=== PATIENT | female | born 1995 | race Caucasian/White ===

== ENCOUNTER 2023-04-13 20:15 | Emergency (ER) | payer BC, SELFPAY ==
[2023-04-13 20:27] VITALS: BMI 23.9
[2023-04-13 20:29] VITALS: BP 122/67; PULSE 65; RESP 16; TEMP 37.2; O2SAT 99
--- NOTE | 2023-04-13 21:45 | ED_ITS ---
HPI - Animal Bite General: Chief Complaint: Animal Bite Stated Complaint: bit by a cat bilateral hands Time Seen by Provider: 04/13/23 20:29 History of Present Illness: 27-year-old female was trying to catch a wild kitten while visiting in [place]. She had caught the Lid become aggressive and scratched and bit at her hands. Incident occurred yesterday. Patient came to be evaluated for injuries and discuss whether or not she needed rabies vaccination. Associated symptoms: Deny fever(s) Review of Systems Const: Denies: fever(s) Card: Denies: chest pain Resp: Denies: dyspnea Skin/Breast: Reports: new lesions Physical Exam Const: COMMON NORMALS: alert HENMT: COMMON NORMALS: normocephalic HEAD & SCALP: normocephalic Neck/C-Spine: COMMON NORMALS: full ROM Resp: COMMON NORMALS: normal respiratory effort and clear to auscultation bilaterally AUSCULTATION: clear to auscultation bilaterally Cardio: COMMON NORMALS: regular rate and regular rhythm RATE: regular rate RHYTHM: regular rhythm Extremity: COMMON NORMALS: full ROM Neuro: SENSORIUM/ORIENTATION: Yes alert Skin: TRAUMA: abrasion (Bilateral hands superficial) and puncture (Bilateral hands superficial) Course Vital Signs: Vital signs: Vital Signs Temperature 98.9 F 04/13/23 22:07 Pulse Rate 65 04/13/23 22:07 Respiratory Rate 16 04/13/23 22:07 Blood Pressure 122/67 04/13/23 22:07 Pulse Oximetry 99 04/13/23 22:07 Oxygen Delivery Me thod Room Air 04/13/23 20:29 MDM - Animal Bite Medical Decision Making 27-year-old female comes in today for injuries to the hand secondary to cat bite/scratches. On exam patient has some superficial puncture wounds and scratches to both hands. No significant swelling or redness is noted. Differential diagnosis includes but not limited to need for prophylaxis rabies, need for prophylaxis tetanus, need for antibiotics, cat scratch, puncture wounds. Injuries are superficial. Patient's tetanus was up-to-date. Reviewed risk for prophylaxis treatment for rabies. The risk for a kitten to carry rabies is very low and this was instructed to patient. Patient at this time did not want vaccination or postexposure treatment but was undecided fully. She will return if she changes her mind for initiation of treatment. Patient was started on Augmentin for prophylaxis antibiotic. Discharge Plan Discharge Patient Disposition: Home Clinical Impression: Cat bite Qualifiers: Encounter type: initial encounter Qualified Code(s): W55.01XA - Bitten by cat, initial encounter Condition: Stable Prescriptions: New amoxicillin-pot clavulanate 875-125 mg tablet 1 tab PO BID Qty: 14 0RF Discharge Orders: Discharge ED (Routine); Ordered 04/13/23 Ordered By: Nura Waters Discharge Diet: Usual diet Discharge Activity: Increase activity as tolerated Patient Instructions: Animal Bite (ED) Activity Restrictions/Additional Instructions: Take antibiotics as directed. Drink plenty of water and fluids. Follow-up with primary care for further instructions. Return to ED for new concerns. Coding Level of Care Code ED Client Account Assistant for Kaylah Sullivan
[2023-04-13] MEDS: amoxicillin-clav 875-125 mg Tablet 1 TAB PO (22:03)
[2023-04-13 22:07] VITALS: BP 122/67; PULSE 65; RESP 16; TEMP 37.2; O2SAT 99
--- NOTE | 2023-04-19 10:59 | DCPLANNER ---
education and training manager was triggered to call patient due to no primary care physician - no answer at this time.
== END 2023-04-13 23:00 | disposition home or self-care (01) ==
PROVIDERS: Emergency Provider Nurse Practitioner Family
DX: S60.572A Other superficial bite of hand of left hand, initial encounter (principal); S60.571A Other superficial bite of hand of right hand, initial encounter; W55.01XA Bitten by cat, initial encounter
CPT/HCPCS: 99283